=== PATIENT | male | born 1965 | race Hispanic/Latino ===

== ENCOUNTER → 2023-05-11 | Outpatient (REF) | payer BC | LOC: WCC 11:25 | PROVIDERS: ATTEND Internal Medicine Infectious Disease | DX: E11.621 Type 2 diabetes mellitus with foot ulcer (principal); L97.428 Non-pressure chronic ulcer of left heel and midfoot with other specified severity | CPT/HCPCS: 36415; 82948 ==

== ENCOUNTER → 2023-05-18 | Outpatient (REF) | payer BC ==
[~2023-05-18] MED LIST: LIDOCAINE VISC 2% SOLN 15 ML UDC ONE
== END ==
LOC: WCC 10:35
PROVIDERS: ATTEND Internal Medicine Infectious Disease
DX: E11.621 Type 2 diabetes mellitus with foot ulcer (principal); L97.428 Non-pressure chronic ulcer of left heel and midfoot with other specified severity

== ENCOUNTER → 2023-06-01 | Outpatient (REF) | payer BC | LOC: WCC 10:47 | PROVIDERS: ATTEND Internal Medicine Infectious Disease | DX: E11.621 Type 2 diabetes mellitus with foot ulcer (principal); L97.428 Non-pressure chronic ulcer of left heel and midfoot with other specified severity ==

== ENCOUNTER → 2023-06-08 | Outpatient (REF) | payer BC | LOC: WCC 13:04 | PROVIDERS: ATTEND Internal Medicine Infectious Disease | DX: E11.621 Type 2 diabetes mellitus with foot ulcer (principal); L97.428 Non-pressure chronic ulcer of left heel and midfoot with other specified severity ==